=== PATIENT | female | born 1975 | race Two or more races ===

== ENCOUNTER 2024-06-07 12:14 | Emergency (ER) | payer MEDICARE, MEDICAID ==
[~2024-06-07] VITALS: Ht 170.2 cm; Wt 75.0 kg
[2024-06-07 12:17] VITALS: TEMP 97.7; O2SAT 100
[2024-06-07] MEDS ORDERED: ONDANSETRON HCL 4MG/2ML INJ IV PRN (14:45)
[2024-06-07] MEDS ORDERED: CLONIDINE 0.1MG TABLET PO PRN (14:45)
[2024-06-07] MEDS ORDERED: DIPHENHYDRAMINE 50MG/ML VIAL IV PRN (14:45)
[2024-06-07] MEDS ORDERED: IPRATROPIUM/ALBUTEROL 0.5-3(2.5)MG/3ML NEB HHN PRN (14:45)
[2024-06-07 14:51] LABS: POTASSIUM 4.2 mEq/L (3.5-5.1)
[2024-06-07 14:53] LABS: CALCIUM 9.7 mg/dL (8.7-10.4)
[2024-06-07 14:57] LABS: CREATININE 2.6 mg/dL (0.6-1.0)
[2024-06-07 14:59] LABS: HCG SCREEN NEGATIVE
[2024-06-07 15:02] LABS: INR 1.1; PROTHROMBIN TIME 12.5 sec (9.6-11.0)
[2024-06-07 16:19] LABS: BASOPHILS % 1.1 % (0.0-2.0); EOSINOPHILS % 1.9 % (0.0-5.0); HEMATOCRIT. 32.5 % (36.0-48.0); HEMOGLOBIN. 10.6 g/dL (12.0-16.0); LYMPHOCYTES % 43.2 % (20.0-50.0); MEAN CORPUSCULAR HEMOGLOBIN 30.2 pg (28.0-32.0); MEAN CORPUSCULAR HGB CONC 32.7 g/dL (31.0-37.0); MEAN CORPUSCULAR VOLUME 92.4 fL (81.0-99.0); MEAN PLATELET VOLUME 7.9 fl (7.4-10.4); MONOCYTES % 10.8 % (2.0-8.0); RED BLOOD CELL COUNT 3.51 mill/uL (4.2-5.4); RED CELL DISTRIBUTION WIDTH 17.7 % (11.6-14.6)
[2024-06-07 16:50] LABS: PLATELET 34 x1000/uL (130-400)
[2024-06-07 18:43] LABS: HEPATITIS B SURFACE ANTIGEN NEGATIVE (Negative)
[2024-06-07 18:50] VITALS: BP 126/80; PULSE 78; RESP 18; O2SAT 99
[2024-06-07 19:04] LABS: HEPATITIS A AB IGM NEGATIVE (Negative)
[2024-06-07 19:05] LABS: HEPATITIS B CORE AB IGM NEGATIVE (Negative); HEPATITIS C AB NON REACTIVE (Neg) (Negative)
[2024-06-08] MEDS ORDERED: LACTULOSE 20G/30ML UDC PO SCH (09:00)
[2024-06-08 15:59] LABS: DIFFERENTIAL COMMENT 1
== END 2024-06-07 18:53 | disposition left against medical advice (07) ==
LOC: ER 12:14 → EDBEDREQTM 13:52 → EDBEDREQ 13:52 → ER 18:53
DX: K70.31 Alcoholic cirrhosis of liver with ascites (principal); K21.9 Gastro-esophageal reflux disease without esophagitis; I12.0 Hypertensive chronic kidney disease with stage 5 chronic kidney disease or end stage renal disease; F41.9 Anxiety disorder, unspecified; N18.6 End stage renal disease; Z99.2 Dependence on renal dialysis
CPT/HCPCS: 36415; 80048; 84703; 85025; 86705; 86709; 86850; 86900; 87340; 99283